=== PATIENT | female | born 1960 | race Caucasian/White ===

== ENCOUNTER 2017-08-06 13:02 | Emergency (ER) | payer OTHER ==
[~2017-08-06] VITALS: Ht 160 cm; Wt 78.8 kg
[~2017-08-06 13:02] MED LIST: ACET-1600 PO; ALPR1TAB6 PO; AMOX1TAB12 PO; ASCO500T8 PO; CHOL400T10 PO; CYAN25009 PO; DIPH25CA61 PO; DOCU-131 PO; DOXA1TAB2 PO; HYDR-3240 PO; METO25TA35 PO; OXYC1TAB7 PO; OXYC5CAP2 PO; VALARIAN ROOT PO
[2017-08-06 13:11] VITALS: BP 137/83
[2017-08-06] MEDS ORDERED: KETOROLAC 30 MG/1 ML IM ONE (14:00)
[2017-08-06] MEDS ORDERED: KETOROLAC 30 MG/1 ML ONE (14:01)
== END 2017-08-06 15:03 | disposition home or self-care (01) ==
LOC: ED 14:57
DX: S93.622A Sprain of tarsometatarsal ligament of left foot, initial encounter (principal); I10 Essential (primary) hypertension; X50.0XXA Overexertion from strenuous movement or load, initial encounter; Y93.89 Activity, other specified; Y92.810 Car as the place of occurrence of the external cause; Y99.8 Other external cause status
CPT/HCPCS: 73630; 96372; 99284; J1885